=== PATIENT | female | born 1945 | race Caucasian/White ===

== ENCOUNTER 2025-02-19 14:41 | Inpatient (IN) | payer MEDICAID ==
[~2025-02-19] VITALS: Ht 167.6 cm; Wt 62.6 kg
[2025-02-19] MEDS ORDERED: MORPHINE SULFATE INJ 4 MG/ML DISP.SYRIN ONE (14:58)
[2025-02-19] MEDS ORDERED: ONDANSETRON HCL/PF 4 MG/2 ML VIAL ONE (14:58)
[2025-02-19] MEDS: ONDANSETRON HCL/PF 4 MG/2 ML VIAL IVP ONE (15:12)
[2025-02-19] MEDS: MORPHINE SULFATE INJ 2 MG/ML DISP.SYRIN IV ONE (15:12)
[2025-02-19 15:21] LABS: PLATELET COUNT (AUTO) 189 K/uL (150-450); RED BLOOD CELL COUNT(AUTO) 3.31 MIL/uL (4.0-5.2); RED CELL DISTRIBUTION WIDTH 18.1 % (11.5-15.0); WHITE BLOOD COUNT (AUTO) 7.4 K/uL (4.3-11.0)
[2025-02-19 15:29] LABS: CALCIUM, SERUM 8.8 mg/dL (8.5-10.1); CREATININE 1.6 mg/dL (0.6-1.3); SODIUM SERUM 141.0 mmol/L (136-145); UREA NITROGEN, BLOOD 41.0 mg/dL (7-18)
[2025-02-19 15:35] LABS: INR 1.35 (0.91-1.10)
[2025-02-19] MEDS ORDERED: NIFE-34 PO (16:18)
[2025-02-19] MEDS ORDERED: MELA10CA PO (16:18)
[2025-02-19] MEDS ORDERED: DONE5TAB34 PO (16:18)
[2025-02-19] MEDS ORDERED: ATOR40TA PO (16:18)
[2025-02-19] MEDS ORDERED: FURO20TA4 PO (16:18)
[2025-02-19] MEDS ORDERED: CARV12.52 PO (16:18)
[2025-02-19] MEDS ORDERED: SENN-261 PO (16:18)
[2025-02-19] MEDS ORDERED: MULT-24 PO (16:18)
[2025-02-19] MEDS ORDERED: DULO20CA19 PO (16:18)
[2025-02-19] MEDS ORDERED: MIRABEGRON PO (16:18)
[2025-02-19] MEDS ORDERED: APIX5TAB PO (16:18)
[2025-02-19 16:39] LABS: BAND % (MANUAL) 1 % (0.0-5.0); LYMPHOCYTES % (MANUAL) 7 % (16-48); MONOCYTES % (MANUAL) 4 % (0-11.0); NEUTROPHILS % (MANUAL) 88 (42-76); PLATELET ESTIMATE ADEQUATE
[2025-02-19] MEDS ORDERED: HYDROMORPHONE 1 MG/1 ML DISP.SYRIN ONE (17:37)
[2025-02-19] MEDS: HYDROMORPHONE 1 MG/1 ML DISP.SYRIN IV ONE (17:57)
[2025-02-19] MEDS ORDERED: ONDANSETRON HCL/PF 4 MG/2 ML VIAL IVP PRN (20:00)
[2025-02-19] MEDS ORDERED: NIFEdipine (10MG) 10 MG CAPSULE PO ONE (20:02)
[2025-02-19] MEDS ORDERED: CARVEDILOL 12.5 MG TABLET ONE (20:02)
[2025-02-19] MEDS: CARVEDILOL 12.5 MG TABLET PO ONE (20:17)
[2025-02-19] MEDS: NIFEdipine (10MG) 10 MG CAPSULE PO ONE (20:17)
[2025-02-19] MEDS: ATORVASTATIN 40 MG TABLET PO SCH (21:23)
[2025-02-19] MEDS: ENOXAPARIN SODIUM 30 MG/0.3 ML DISP.SYRIN SQ SCH (22:09)
[2025-02-19] MEDS: TEMAZEPAM 15 MG CAPSULE PO PRN (22:17)
[2025-02-20] VITALS (9 sets, daily range): BP systolic 114–198; BP diastolic 7–75; TEMP 97.5–99; O2SAT 94–100
[2025-02-20] MEDS: MORPHINE SULFATE INJ 2 MG/ML DISP.SYRIN IV PRN (06:56)
[2025-02-20 07:43] LABS: PLATELET COUNT (AUTO) 162 K/uL (150-450); RED BLOOD CELL COUNT(AUTO) 3.13 MIL/uL (4.0-5.2); RED CELL DISTRIBUTION WIDTH 18.3 % (11.5-15.0); WHITE BLOOD COUNT (AUTO) 4.8 K/uL (4.3-11.0)
[2025-02-20 08:03] LABS: CALCIUM, SERUM 8.5 mg/dL (8.5-10.1); CREATININE 1.9 mg/dL (0.6-1.3); PHOSPHORUS 4.5 mg/dL (2.5-4.9); SODIUM SERUM 144.0 mmol/L (136-145); UREA NITROGEN, BLOOD 38.0 mg/dL (7-18)
[2025-02-20] MEDS: PANTOPRAZOLE 40 MG TABLET.DR PO SCH (08:17)
[2025-02-20] MEDS: DULOXETINE HCL 20 MG CAPSULE.DR PO SCH (08:23)
[2025-02-20] MEDS: CARVEDILOL 12.5 MG TABLET PO SCH (08:23)
[2025-02-20] MEDS: MULTIVITAMINS,THERAGRAN 1 UDTAB TABLET PO SCH (08:23)
[2025-02-20] MEDS: DONEPEZIL 5 MG TABLET PO SCH (08:24)
[2025-02-20] MEDS: SENNOSIDES 8.6 MG TABLET PO SCH (08:24)
[2025-02-20] MEDS: FUROSEMIDE 20 MG TABLET PO SCH (08:24)
[2025-02-20] MEDS: HYDROCODONE/APAP 5/325MG TABLET PO PRN (08:25)
[2025-02-20 08:53] LABS: LDL 44.0 mg/dL (0-99)
[2025-02-20] MEDS: hydrALAZINE HCL IV 20 MG VIAL IV PRN (12:05)
[2025-02-20] MEDS: HYDROMORPHONE 1 MG/1 ML DISP.SYRIN IV PRN (14:26)
[2025-02-20] MEDS ORDERED: ANESTHESIA TRAY IN PYXIS 1 EA TRAY MC ONE (16:02)
[2025-02-20] MEDS ORDERED: TRANEXAMIC ACID 1,000 MG/10 ML VIAL ONE (16:02)
[2025-02-20] MEDS ORDERED: BUPIVACAINE 0.25% 75 MG/30 ML VIAL ONE (16:02)
[2025-02-20] MEDS: ALBUTEROL FS 2.5 MG/3 ML VIAL.NEB NEB PRN (16:05)
[2025-02-20] MEDS: TOLTERODINE 2 MG TABLET PO SCH (16:29)
[2025-02-20] MEDS ORDERED: FENTANYL PF 100MCG/2ML AMPUL ONE ×2 (16:51→17:57)
[2025-02-20] MEDS ORDERED: VASOPRESSIN INJ 20 UNIT/ML VIAL ONE (16:51)
[2025-02-20] MEDS ORDERED: LABETALOL HCL IV 100MG VIAL ONE (17:57)
[2025-02-20] MEDS ORDERED: METOPROLOL TARTRATE INJ 5 MG/5 ML AMPUL ONE (18:17)
[2025-02-20] MEDS ORDERED: FUROSEMIDE 20 MG/2 ML VIAL ONE (18:40)
[2025-02-20 20:03] LABS: CALCIUM, SERUM 8.1 mg/dL (8.5-10.1); CREATININE 2.0 mg/dL (0.6-1.3); SODIUM SERUM 144.0 mmol/L (136-145); UREA NITROGEN, BLOOD 38.0 mg/dL (7-18)
[2025-02-20 20:09] LABS: ASPARTATE AMINOTRANSFERASE 28.0 U/L (15-37); TOTAL PROTEIN, SERUM 6.5 g/dL (6.4-8.2)
[2025-02-20] MEDS: LABETALOL 20 MG/4 ML VIAL IV ONE (20:50)
[2025-02-21] MEDS ORDERED: CEFAZOLIN 1 GM ONE (01:35)
[2025-02-21] MEDS: CEFAZOLIN IV SCH (02:07)
[2025-02-21] MEDS: D5W IV SCH (02:07)
[2025-02-21 04:00] VITALS: BP 138/63; TEMP 98.4; O2SAT 100
[2025-02-21 08:00] VITALS: BP 148/97; O2SAT 97
[2025-02-21] MEDS: APIXABAN 2.5 MG TABLET PO SCH (09:29)
[2025-02-21] MEDS: IV NS 0.9% 1,000 ML IV PRN (14:23)
[2025-02-21 14:59] LABS: PLATELET COUNT (AUTO) 185 K/uL (150-450); RED BLOOD CELL COUNT(AUTO) 3.41 MIL/uL (4.0-5.2); RED CELL DISTRIBUTION WIDTH 19.2 % (11.5-15.0); WHITE BLOOD COUNT (AUTO) 7.1 K/uL (4.3-11.0)
[2025-02-21 16:00] VITALS: BP 145/63; TEMP 97.4; O2SAT 91
[2025-02-21 16:15] LABS: PHOSPHORUS 5.2 mg/dL (2.5-4.9)
[2025-02-21 17:59] LABS: IRON, SERUM 22 ug/dl (50-175)
[2025-02-21 18:54] LABS: CREATINE KINASE, TOTAL 211.0 U/L (26-192)
[2025-02-21 18:55] LABS: ASPARTATE AMINOTRANSFERASE 92.0 U/L (15-37); CALCIUM, SERUM 8.0 mg/dL (8.5-10.1); CREATININE 2.6 mg/dL (0.6-1.3); SODIUM SERUM 139.0 mmol/L (136-145); TOTAL PROTEIN, SERUM 6.1 g/dL (6.4-8.2); UREA NITROGEN, BLOOD 43.0 mg/dL (7-18)
[2025-02-21 19:56] LABS: APPEARANCE,URINE SLIGHTLY CLOUDY (CLEAR); BLOOD, URINE 1+ Ery/uL (NEGATIVE); LEUKOCYTE ESTERASE ,URINE 1+ (NEGATIVE); NITRITE, URINE NEGATIVE (NEGATIVE); UGLUCOSE NEGATIVE (NEGATIVE)
[2025-02-21 20:00] VITALS: BP 133/57; TEMP 98; O2SAT 98
[2025-02-21 20:04] LABS: CREATININE, URINE 36.3 MG/DL (30.0-125.0); URINE SODIUM, RANDOM 15.0 mmol/l (40-220); URINE TOTAL PROTEIN 91.3 mg/dL (0-11.9)
[2025-02-21 20:32] LABS: SQUAMOUS EPITHELIAL CELL,UR Many /HPF (None Seen)
[2025-02-21 20:34] LABS: ADD URINE CULTURE YES
[2025-02-21 20:53] LABS: EOSINOPHIL,URINE None Seen
[2025-02-21] MEDS ORDERED: LORAZEPAM 0.5 MG TABLET PO PRN (22:00)
[2025-02-22] VITALS (10 sets, daily range): BP systolic 120–179; BP diastolic 56–77; TEMP 97.3–98.6; O2SAT 91–93
[2025-02-22 07:41] LABS: PLATELET COUNT (AUTO) 144 K/uL (150-450); RED BLOOD CELL COUNT(AUTO) 3.13 MIL/uL (4.0-5.2); RED CELL DISTRIBUTION WIDTH 19.6 % (11.5-15.0); WHITE BLOOD COUNT (AUTO) 5.6 K/uL (4.3-11.0)
[2025-02-22 07:50] LABS: ASPARTATE AMINOTRANSFERASE 68.0 U/L (15-37); CALCIUM, SERUM 8.0 mg/dL (8.5-10.1); CREATININE 2.7 mg/dL (0.6-1.3); PHOSPHORUS 4.1 mg/dL (2.5-4.9); SODIUM SERUM 141.0 mmol/L (136-145); TOTAL PROTEIN, SERUM 5.6 g/dL (6.4-8.2); UREA NITROGEN, BLOOD 48.0 mg/dL (7-18)
[2025-02-22] MEDS: NIFEDIPINE XL 60 MG TAB.ER.24 PO PRN (08:16)
[2025-02-22 08:43] LABS: CREATINE KINASE, TOTAL 122 U/L (26-192)
[2025-02-22] MEDS: SOD FERRIC GLUC 125 MG in IV NS 0.9% 100 ML IV SCH (15:30)
[2025-02-22] MEDS: ACETAMINOPHEN 325 MG TABLET PO PRN (19:49)
[2025-02-23] VITALS (12 sets, daily range): BP systolic 132–166; BP diastolic 58–61; TEMP 97.3–98.2; O2SAT 90–95
[2025-02-23 06:10] LABS: CANCER AG, 15-3 16.3 U/mL (0.0-25.0); CARCINOEMBRYONIC ANTIGEN (CEA) 2.6 ng/mL (0.0-4.7); IMMUNOGLOBULIN A, SERUM 103 mg/dL (64-422); IMMUNOGLOBULIN M, SERUM 38 mg/dL (26-217)
[2025-02-23 06:10] LABS: PTH, INTACT 114 pg/mL (15-65)
[2025-02-23 07:46] LABS: PHOSPHORUS 3.6 mg/dL (2.5-4.9)
[2025-02-23 07:49] LABS: PLATELET COUNT (AUTO) 160 K/uL (150-450); RED BLOOD CELL COUNT(AUTO) 3.42 MIL/uL (4.0-5.2); RED CELL DISTRIBUTION WIDTH 19.6 % (11.5-15.0); WHITE BLOOD COUNT (AUTO) 6.4 K/uL (4.3-11.0)
[2025-02-23 08:07] LABS: PTH, INTACT 115 pg/mL (15-65)
[2025-02-23 08:07] LABS: FREE KAPPA LT CHAINS SERUM 35.4 mg/L (3.3-19.4); FREE LAMBDA LT CHAIN SERUM 42.7 mg/L (5.7-26.3); KAPPA/LAMBDA RATIO SERUM 0.83 (0.26-1.65)
[2025-02-23 08:08] LABS: CALCIUM, SERUM 8.1 mg/dL (8.5-10.1); CREATININE 2.7 mg/dL (0.6-1.3); SODIUM SERUM 142.0 mmol/L (136-145); UREA NITROGEN, BLOOD 49.0 mg/dL (7-18)
[2025-02-23 11:13] LABS: FOLIC ACID > 20.0 ng/mL (>3.0)
[2025-02-23] MEDS: ALBUTEROL FS 2.5 MG/3 ML VIAL.NEB NEB SCH (12:30)
[2025-02-23] MEDS: ACETYLCYSTEINE 10% SOLN 400 MG/4 ML VIAL NEB SCH (15:41)
[2025-02-23] MEDS: SODIUM CL FOR INHALATION 3% 15 ML VIAL.NEB IH SCH (23:26)
[2025-02-24] VITALS (15 sets, daily range): BP systolic 150–185; BP diastolic 60–92; TEMP 97.5–98.6; O2SAT 93–99
[2025-02-24 09:06] LABS: PLATELET COUNT (AUTO) 139 K/uL (150-450); RED BLOOD CELL COUNT(AUTO) 3.55 MIL/uL (4.0-5.2); RED CELL DISTRIBUTION WIDTH 20.5 % (11.5-15.0); WHITE BLOOD COUNT (AUTO) 5.0 K/uL (4.3-11.0)
[2025-02-24 09:17] LABS: CALCIUM, SERUM 8.3 mg/dL (8.5-10.1); CREATININE 2.4 mg/dL (0.6-1.3); PHOSPHORUS 3.4 mg/dL (2.5-4.9); SODIUM SERUM 142.0 mmol/L (136-145); UREA NITROGEN, BLOOD 45.0 mg/dL (7-18)
[2025-02-24] MEDS: MAGNESIUM HYDROXIDE 30 ML UDC PO PRN (09:18)
[2025-02-24] MEDS: Z GUARD REMEDY 4 OZ OINT TP PRN (09:20)
[2025-02-24] MEDS: AMLODIPINE BESYLATE 5 MG TABLET PO SCH (11:14)
[2025-02-24] MEDS: IPRATROPIUM NEB FS 0.5 MG/2.5 ML AMPUL.NEB NEB SCH (14:21)
[2025-02-25] VITALS (20 sets, daily range): BP systolic 155–182; BP diastolic 62–85; TEMP 97.7–98.1; O2SAT 89–99
[2025-02-25 07:17] LABS: PLATELET COUNT (AUTO) 121 K/uL (150-450); RED BLOOD CELL COUNT(AUTO) 3.26 MIL/uL (4.0-5.2); RED CELL DISTRIBUTION WIDTH 20.7 % (11.5-15.0); WHITE BLOOD COUNT (AUTO) 4.0 K/uL (4.3-11.0)
[2025-02-25 07:25] LABS: ASPARTATE AMINOTRANSFERASE 30.0 U/L (15-37); CALCIUM, SERUM 8.4 mg/dL (8.5-10.1); CREATININE 2.4 mg/dL (0.6-1.3); PHOSPHORUS 3.5 mg/dL (2.5-4.9); SODIUM SERUM 141.0 mmol/L (136-145); TOTAL PROTEIN, SERUM 5.3 g/dL (6.4-8.2); UREA NITROGEN, BLOOD 47.0 mg/dL (7-18)
[2025-02-25] MEDS: MAG HYDROX/AL HYDROX/SIMETH 30 ML UDC PO PRN (18:04)
[2025-02-26] VITALS (11 sets, daily range): BP systolic 150–184; BP diastolic 66–79; TEMP 97.7–98.2; O2SAT 94–99
[2025-02-26 06:20] LABS: PLATELET COUNT (AUTO) 129 K/uL (150-450); RED BLOOD CELL COUNT(AUTO) 3.30 MIL/uL (4.0-5.2); RED CELL DISTRIBUTION WIDTH 21.2 % (11.5-15.0); WHITE BLOOD COUNT (AUTO) 4.9 K/uL (4.3-11.0)
[2025-02-26 07:36] LABS: ASPARTATE AMINOTRANSFERASE 26.0 U/L (15-37); CALCIUM, SERUM 8.4 mg/dL (8.5-10.1); CREATININE 2.3 mg/dL (0.6-1.3); PHOSPHORUS 3.1 mg/dL (2.5-4.9); SODIUM SERUM 139.0 mmol/L (136-145); TOTAL PROTEIN, SERUM 5.4 g/dL (6.4-8.2); UREA NITROGEN, BLOOD 54.0 mg/dL (7-18)
[2025-02-26] MEDS ORDERED: AMLO-212 PO (12:07)
[2025-02-26] MEDS ORDERED: IPRA0.2S9 NEB (12:07)
[2025-02-26] MEDS ORDERED: SODI15VI10 IH (12:07)
[2025-02-26] MEDS ORDERED: Lorazepam PO (12:07)
[2025-02-26] MEDS ORDERED: Hydrocodone/Apap 5/325MG PO (12:07)
[2025-02-26] MEDS ORDERED: APIX2.5T PO (12:07)
[2025-02-26] MEDS ORDERED: FERR325T23 PO (12:07)
[2025-02-26] MEDS ORDERED: ACET1OOV6 NEB (12:07)
[2025-02-26] MEDS ORDERED: PANT40TA49 PO (12:07)
[2025-02-26] MEDS ORDERED: ALBUT2 NEB (12:07)
[2025-02-27 15:10] LABS: *SPE A/G RATIO 1.3 (0.7-1.7); *SPE ALBUMIN 3.2 g/dL (2.9-4.4); *SPE ALPHA-1-GLOBULIN 0.4 g/dL (0.0-0.4); *SPE ALPHA-2-GLOBULIN 0.7 g/dL (0.4-1.0); *SPE BETA GLOBULIN 0.9 g/dL (0.7-1.3); *SPE GLOBULIN, TOTAL 2.5 g/dL (2.2-3.9); *SPE M-SPIKE Not Observed g/dL (Not Observed); *SPE PROTEIN TOTAL 5.7 g/dL (6.0-8.5); *SPEGAMMA GLOBULIN 0.5 g/dL (0.4-1.8)
[2025-02-27 15:10] LABS: *SPE A/G RATIO 1.2 (0.7-1.7); *SPE ALBUMIN 2.8 g/dL (2.9-4.4); *SPE ALPHA-1-GLOBULIN 0.4 g/dL (0.0-0.4); *SPE ALPHA-2-GLOBULIN 0.7 g/dL (0.4-1.0); *SPE BETA GLOBULIN 0.8 g/dL (0.7-1.3); *SPE GLOBULIN, TOTAL 2.4 g/dL (2.2-3.9); *SPE M-SPIKE 0.1 g/dL (Not Observed); *SPE PROTEIN TOTAL 5.2 g/dL (6.0-8.5); *SPEGAMMA GLOBULIN 0.5 g/dL (0.4-1.8)
== END 2025-02-26 17:52 | DRG 323 ==
LOC: ER 14:47 → MEDSG1 19:21 → MED 02-24 15:05
PROVIDERS: ADMIT Nurse Practitioner Acute Care; ATTEND Student in an Organized Health Care Education/Training Program
PROC: 0SRS0J9 Replacement of Left Hip Joint, Femoral Surface with Synthetic Substitute, Cemented, Open Approach (ICD-10-PCS; principal; 2025-02-20 17:00)
PROC: 30233N1 Transfusion of Nonautologous Red Blood Cells into Peripheral Vein, Percutaneous Approach (ICD-10-PCS; 2025-02-22)
DX: S72.012A Unspecified intracapsular fracture of left femur, initial encounter for closed fracture (principal); N17.0 Acute kidney failure with tubular necrosis; T17.590A Other foreign object in bronchus causing asphyxiation, initial encounter; C79.51 Secondary malignant neoplasm of bone; F05 Delirium due to known physiological condition; J90 Pleural effusion, not elsewhere classified; I13.0 Hypertensive heart and chronic kidney disease with heart failure and stage 1 through stage 4 chronic kidney disease, or unspecified chronic kidney disease; N18.9 Chronic kidney disease, unspecified; F03.A3 Unspecified dementia, mild, with mood disturbance; F32.A Depression, unspecified; J44.9 Chronic obstructive pulmonary disease, unspecified; I70.0 Atherosclerosis of aorta; D50.9 Iron deficiency anemia, unspecified; I27.22 Pulmonary hypertension due to left heart disease; F29 Unspecified psychosis not due to a substance or known physiological condition; I21.A1 Myocardial infarction type 2; I50.30 Unspecified diastolic (congestive) heart failure; W01.0XXA Fall on same level from slipping, tripping and stumbling without subsequent striking against object, initial encounter; N32.81 Overactive bladder; W44.F9XA Other object of natural or organic material, entering into or through a natural orifice, initial encounter; E78.5 Hyperlipidemia, unspecified; Z95.5 Presence of coronary angioplasty implant and graft; Y92.009 Unspecified place in unspecified non-institutional (private) residence as the place of occurrence of the external cause; E86.9 Volume depletion, unspecified; Z79.899 Other long term (current) drug therapy; Z79.01 Long term (current) use of anticoagulants; Y93.9 Activity, unspecified; Z87.891 Personal history of nicotine dependence; E83.89 Other disorders of mineral metabolism; Z85.79 Personal history of other malignant neoplasms of lymphoid, hematopoietic and related tissues; Z92.21 Personal history of antineoplastic chemotherapy; J98.11 Atelectasis
CPT/HCPCS: 36415; 71045-TC; 71250-TC; 72170-TC; 72192-TC; 73502; 73552; 76770-TC; 80048-TC; 80053-TC; 80061-TC; 81001; 82378; 82550-TC; 82570-TC; 82607-TC; 82728-TC; 82784; 83540-TC; 83615-TC; 83735-TC; 83970; 84100-TC; 84155; 84165; 84300-TC; 84443-TC; 84484-TC; 85025-TC; 85027-TC; 85378-TC; 85730-TC; 86300; 86334; 86850-TC; 87086-TC; 88305-TC; 88311-TC; 93307-TC; 93970-TC; 94760-TC; 94799-TC; 97110-TC; 97116-TC; 97530-TC; 97535-TC; A4217; A4218; A4223; C1713; C1776; G0378; J0360; J0690; J1171; J1650; J1938; J2270; J2405; J2916; J3010; J3490; J7030; J7050; J7060; P9016